=== PATIENT | female | born 1955 | race Two or more races ===

== ENCOUNTER → 2024-09-09 | Outpatient (CLI) | payer OTHER | LOC: M WHC 07:11 | PROVIDERS: ATTEND Nurse Practitioner Family | DX: Z12.31 Encounter for screening mammogram for malignant neoplasm of breast (principal); Z90.12 Acquired absence of left breast and nipple | CPT/HCPCS: 77067; G0279 ==

== ENCOUNTER → 2024-10-26 | Outpatient (CLI) | payer SELFPAY | LOC: M WUC 10:02 | PROVIDERS: ATTEND Student in an Organized Health Care Education/Training Program | DX: M19.012 Primary osteoarthritis, left shoulder (principal) ==